=== PATIENT | female | born 1955 | race Caucasian/White ===

== ENCOUNTER 2023-01-20 06:48 | Day surgery (SDC) | payer MEDICARE ==
[~2023-01-20] VITALS: Ht 154.9 cm; Wt 77.2 kg
[~2023-01-20 06:48] MED LIST: RINGERS SOLUTION,LACTATED 500 ML IV ONE
[2023-01-20] MEDS ORDERED: METF-1211 PO (07:45)
[2023-01-20] MEDS ORDERED: DICL-208 PO (07:45)
[2023-01-20] MEDS ORDERED: VALS80TA2 PO (07:45)
[2023-01-20] MEDS ORDERED: ASPI-1450 PO (07:45)
[2023-01-20] MEDS: KETOROLAC TROMETHAMINE 0.5% 5 ML OPHTHALMIC SOLUTION OD SCH ×3 (08:15→08:29)
[2023-01-20] MEDS: TROPICAMIDE 1% 2 ML OPHTHALMIC SOLUTION OD SCH ×3 (08:16→08:29)
[2023-01-20] MEDS: MOXIFLOXACIN HCL 0.5% 3 ML OPHTHALMIC SOLUTION OD SCH ×3 (08:16→08:30)
[2023-01-20] MEDS: PHENYLEPHRINE HCL 2.5% 2 ML OPHTHALMIC SOLUTION OD SCH ×3 (08:16→08:29)
[2023-01-20 08:20] LABS: GLUCOMETER DEV NAME(LOC) SDS.
[2023-01-20] MEDS ORDERED: FentaNYL CITRATE PF 100 MCG/2 ML VIAL IVP ONE (12:00)
[2023-01-20] MEDS ORDERED: MIDAZOLAM HCL 2 MG/2 ML VIAL IVP ONE (12:00)
== END 2023-01-20 12:20 | disposition home or self-care (01) ==
LOC: SURGERY 06:48
PROVIDERS: ATTEND Ophthalmology
DX: E11.36 Type 2 diabetes mellitus with diabetic cataract (principal); H25.11 Age-related nuclear cataract, right eye; Z79.899 Other long term (current) drug therapy; I10 Essential (primary) hypertension; Z98.890 Other specified postprocedural states
CPT/HCPCS: 93005; 66984; 82962; J3010; J2250; J7120; V2632

== ENCOUNTER 2023-02-17 07:40 | Day surgery (SDC) | payer MEDICARE ==
[~2023-02-17] VITALS: Ht 154.9 cm; Wt 77.2 kg
[~2023-02-17 07:40] MED LIST changes: +ASPI-1450 PO; +DICL-208 PO; +EPINEPHrine 1:1,000 [1 MG/ML] VIAL ONE; +LIDOCAINE/PF 1% 2 ML VIAL ONE; +METF-1211 PO; +POVIDONE-IODINE 5% 30 ML OPHTHALMIC SOLUTION ONE; -RINGERS SOLUTION,LACTATED 500 ML IV ONE; +TETRACAINE HCL/PF 0.5% 4 ML OPHTHALMIC SOLUTION ONE; +VALS80TA2 PO
[2023-02-17] MEDS ORDERED: TROPICAMIDE 1% 2 ML OPHTHALMIC SOLUTION ONE (07:47)
[2023-02-17] MEDS ORDERED: KETOROLAC TROMETHAMINE 0.5% 5 ML OPHTHALMIC SOLUTION ONE (07:47)
[2023-02-17] MEDS ORDERED: MOXIFLOXACIN HCL 0.5% 3 ML OPHTHALMIC SOLUTION ONE (07:47)
[2023-02-17] MEDS ORDERED: PHENYLEPHRINE HCL 2.5% 2 ML OPHTHALMIC SOLUTION ONE (07:47)
[2023-02-17] MEDS: TROPICAMIDE 1% 2 ML OPHTHALMIC SOLUTION OS SCH ×3 (08:06→08:21)
[2023-02-17] MEDS: PHENYLEPHRINE HCL 2.5% 2 ML OPHTHALMIC SOLUTION OS SCH ×3 (08:06→08:20)
[2023-02-17] MEDS: KETOROLAC TROMETHAMINE 0.5% 5 ML OPHTHALMIC SOLUTION OS SCH ×3 (08:06→08:21)
[2023-02-17] MEDS: MOXIFLOXACIN HCL 0.5% 3 ML OPHTHALMIC SOLUTION OS SCH ×3 (08:06→08:20)
[2023-02-17 08:25] LABS: GLUCOMETER DEV NAME(LOC) SDS.
[2023-02-17] MEDS ORDERED: ATOR20TA PO (08:26)
[2023-02-17] MEDS ORDERED: RINGERS SOLUTION,LACTATED 500 ML IV ONE (10:30)
[2023-02-17] MEDS ORDERED: FentaNYL CITRATE PF 100 MCG/2 ML VIAL IVP ONE (12:00)
[2023-02-17] MEDS ORDERED: MIDAZOLAM HCL 2 MG/2 ML VIAL IVP ONE (12:00)
== END 2023-02-17 10:00 | disposition home or self-care (01) ==
LOC: SURGERY 07:40
PROVIDERS: ATTEND Ophthalmology
DX: E11.36 Type 2 diabetes mellitus with diabetic cataract (principal); H25.12 Age-related nuclear cataract, left eye; E66.3 Overweight; I10 Essential (primary) hypertension; Z91.013 Allergy to seafood; Z79.899 Other long term (current) drug therapy
CPT/HCPCS: 66984; 82962; J0171; J3010; J3490; J2250; Q9967; V2632